=== PATIENT | male | born 1960 | race African-American/Black ===

== ENCOUNTER 2016-11-15 11:21 | Emergency (ER) ==
[2016-11-15 11:25] VITALS: BP 156/94; TEMP 97.1; BMI 20.3
[2016-11-15] MEDS ORDERED: VALIUM SYRINGE IM STA (11:50)
[2016-11-15] MEDS ORDERED: ZOFRAN 4 MG/2 ML IM STA (11:50)
[2016-11-15] MEDS ORDERED: MORPHINE 4 MG/ML SYRINGE IM STA (11:50)
--- NOTE | 2016-11-15 12:27 | CT ---
EXAM: CT lumbar spine without contrast. HISTORY: Initial presentation for back pain and right leg pain following lifting injury. COMPARISON: Radiograph 08/03/2010. TECHNIQUE: Multiple axial images of the lumbar spine were obtained without intravenous contrast. I mages were reformatted in the sagittal and coronal planes. FINDINGS: The normal curvature and alignment are maintained. Vertebral body heights are normal. N o fracture or subluxation is seen. There is mild loss of disc height at L3-4 and L4-5. Osteoarthri tic changes of the sacroiliac joints noted. Paravertebral soft tissue are without gross abnormality . Atherosclerotic calcifications present. T12-L1: Facet arthropathy with no significant neural compromise. L1-2: Facet arthropathy without neural compromise. L2-3: Broad-based disc bulge, facet arthropathy and thickening of ligamentum flavum with mild centr al canal stenosis and neural foraminal narrowing. L3-4: Disc osteophyte formation, facet arthropathy and thickening of ligamentum flavum with mild mo derate central canal stenosis and left greater than right neural foraminal narrowing. L4-5: Disc osteophyte formation, facet arthropathy and thickening of ligamentum flavum with moderat e central canal stenosis and mild neural foraminal narrowing. L5-S1: Disc osteophyte formation and facet arthropathy with mild neural foraminal narrowing.. IMPRESSION: 1. No fracture or subluxation. 2. Multilevel degenerative changes as described.
--- NOTE | 2016-11-15 12:55 | ED.PDOC ---
General ED Provider: Dr. ZOE BELTRÁN Chief Complaint: Back Pain Stated Complaint: back pain Time Seen by Physician: 11:30 Mode of Arrival: Walk-In Information Source: Patient Exam Limitations: No limitations Primary Care Provider: HARLEY TRAC[facility]Far[facility] Nursing and Triage Documentation Reviewed and Agree: Yes Musculoskeletal Complaint Exam - Back Pain Complaint/Exam Mechanism of Injury: Reports: No known trauma Onset/Duration: 1 day Symptoms Are: Still present Timing: Constant Episodes Lasting: Hours Initial Severity: Moderate Current Severity: Moderate Character: Reports: Throbbing, Spasmodic Aggravating: Reports: Movements, Lifting Alleviating: Reports: Rest, Position Associated Signs and Symptoms: Denies: Swelling, Redness, Bruising, Fever, Weakness, Numbness, Tingling, Abdominal pain, Flank pain, Bladder incontinence, Bowel incontinence, Weight loss, Pain with weight bearing Related History: Reports: Similar episode TAD Risk Factors: Reports: None AAA Risk Factors: Reports: None Cauda Equina Risk Factors: Reports: None Epidural Abcess Risk Factors: Reports: None Related Surgical History: Reports: None Focal Tenderness: No Paraspinal Muscle Tenderness: No Paraspinal Muscle Spasm: No Scoliosis: No Lordosis: No Kyphosis: No SLR Test: Right Negative, Left Negative Hip Motion Testing Pain: Right Negative, Left Negative Focal Weakness: Present: None Focal Sensory Loss: Present: None Gait: Present: Normal Differential Diagnoses: Arthritis, Fracture, Renal Colic, Strain, Sprain Review of Systems - Review Of Systems Constitutional: Reports: No symptoms Eyes: Reports: No symptoms Ears, Nose, Mouth, Throat: Reports: No symptoms Respiratory: Reports: No symptoms Cardiac: Reports: No symptoms GI: Reports: No symptoms : Reports: No symptoms Musculoskeletal: Reports: Back pain Skin: Reports: No symptoms Neurological: Reports: No symptoms Endocrine: Reports: No symptoms Hematologic/Lymphatic: Reports: No symptoms All Other Systems: Reviewed and Negative Past Medical History - Past Medical History Previously Healthy: Yes Endocrine: Reports: None Cardiovascular: Reports: None Respiratory: Reports: None Hematological: Reports: None Gastrointestinal: Reports: None Genitourinary: Reports: None Neuro/Psych: Reports: None Musculoskeletal: Reports: Joint Pain Cancer: Reports: None - Surgical History General Surgical History: Reports: Orthopedic (right hip replacement- still painful) - Family History Family History: Reports: Unknown - Social History Smoking Status: Current every day smoker Hx Substance Use: No Alcohol Screening: None Physical Exam - Physical Exam Appearance: Well-appearing, No pain distress, Well-nourished Eyes: JOSSUE, EOMI, Conjunctiva clear ENT: Ears normal, Nose normal, Oropharynx normal Respiratory: Airway patent, Breath sounds clear, Breath sounds equal, Respirations nonlabored Cardiovascular: RRR, Pulses normal, No rub, No murmur GI/: Soft, Nontender, No masses, Bowel sounds normal, No Organomegaly Musculoskeletal: Normal strength, ROM intact, No edema, No calf tenderness Skin: Warm, Dry, Normal color Neurological: Sensation intact, Motor intact, Reflexes intact, Cranial nerves intact, Alert, Oriented Psychiatric: Affect appropriate, Mood appropriate Interpretation - Radiology Interpretation Radiology Interpretation By: Radiologist Radiology Results: No acute changes Critical Care Note - Critical Care Note Total Time (mins): 0 Course - Course Orders, Labs, Meds: Orders Category Date Time Status CT LUMBAR SPINE W/O CONTRAST Stat RADS 11/15/16 11:51 Ordered Vital Signs: Temp Pulse Resp BP Pulse Ox 11/15/16 11:23 97.1 F L 70 16 156/94 H 97 Departure - Departure Time of Disposition: 12:54 Disposition: HOME SELF-CARE Discharge Problem: Low back pain Qualifiers: Chronicity: unspecified Back pain laterality: unspecified Instructions: Low Back Strain (ED), Acute Low Back Pain (ED) Condition: Good Pt referred to PMD for follow-up: No Additional Instructions: Please call your Family Physician as soon as possible to schedule a follow-up appointment. Prescriptions: Hydrocodone/Acetaminophen [[place] 5-325 Tablet] 1 each PO Q6HR PRN #14 tablet PRN Reason: PAIN Allergies/Adverse Reactions: Allergies No Known Allergies Allergy (Unverified 11/15/16 11:26) Home Medications: Ambulatory Orders Hydrocodone/Acetaminophen [[place] 5-325 Tablet] 1 each PO Q6HR PRN #14 tablet 10/03
== END 2016-11-15 13:12 | disposition home or self-care (01) ==
LOC: ED 11:21
DX: M54.5 Low back pain (principal); F17.210 Nicotine dependence, cigarettes, uncomplicated
CPT/HCPCS: 99282

== ENCOUNTER 2016-11-22 07:54 | Outpatient (CLI) ==
--- NOTE | 2016-11-22 22:09 | MRI ---
EXAM: Lumbar spine MRI without contrast. HISTORY: Back pain and pain down right leg. COMPARISON: Lumbar spine CT scan 11/15/2016 and lumbar spine radiographs 08/03/2010. TECHNIQUE: Multiplanar, multisequence MR images were acquired of the lumbar spine without contrast. FINDINGS: Five lumbar-type vertebra are present. The lumbar vertebra are normal in height. Intrins ic bone marrow signal is mildly heterogeneous with small areas of increased bright T1 and T2 signal fatty infiltration. There is 2 mm retrolisthesis of L2 on L3 and 1.5 mm retrolisthesis of L3 on L4. Ventral and lateral osteophytes are present in the lumbar spine and there is mild to moderate disc space narrowing and central disc desiccation at L3-4 and L4-5. There is mild reactive bright STIR signal edema along the posterior endplates at L3-4 and L4-5 and minor irregular concavity of the ant erior superior L5 endplate. Posterior disc space narrowing is present at L5-S1. There is mild endpl ate irregularity in the lower thoracic spine with prominent chronic Schmorl's nodes along the inferi or endplates of T10 and T11. Conus medullaris ends at L1-2 and has normal signal intensity. Canal diameter is developmentally narrow due to congenitally short pedicles. There is osteoarthritis of t he posterior spinous processes at L3-4, L4-5 and L5-S1. The solid organs are poorly visualized due to respiratory motion. There is no hydronephrosis. T12-L1: The intervertebral disc is normal. L1-2: There is a minor disc bulge with marginal osteophytes and minor bilateral hypertrophic facet arthropathy and mild ligamentum flavum hypertrophy. This causes mild bilateral foraminal stenosis. There is no central canal stenosis. L2-3: There is a mild disc bulge and mild bilateral hypertrophic facet arthropathy and ligamentum f lavum hypertrophy, greater on the left. There is moderate right and mild to moderate left neural fo raminal stenosis. AP diameter of the thecal sac is 9 mm. L3-4: There is a diffuse disc bulge with a central annular fissure that effaces the ventral thecal sac. Mild bilateral hypertrophic facet arthropathy and ligamentum flavum hypertrophy is present and there is a tiny left facet effusion. There is mild spinal stenosis and moderate bilateral foramina l stenosis with encroachment on both L3 nerves. AP diameter of the thecal sac is 9 mm. L4-5: There is a mild diffuse disc bulge with marginal osteophytes and a small broad-based central disc extrusion and annular fissure that extends from the right lateral recess to the left that sligh tly above the disc level. Mild bilateral hypertrophic facet arthropathy and ligamentum flavum hyper trophy is present. There are small bilateral facet effusions. This causes mild spinal stenosis and moderate bilateral foraminal stenosis. AP diameter of the thecal sac is 8.6 mm. L5-S1: There is a minor disc bulge with a small broad-based central disc protrusion and annular fis sure that minimally effaces the ventral thecal sac. Minor bilateral hypertrophic facet arthropathy and ligamentum flavum hypertrophy is present. There is mild right and moderate left foraminal steno sis. IMPRESSION: 1. Mild to moderate lumbar degenerative spondylosis which causes mild spinal stenosis at L2-3, L3-4 and L4-5. 2. Small broad-based central disc protrusions and annular fissures L4-5 and L5-S1. 3. Multilevel neural foraminal stenosis.
== END 2016-11-22 07:55 | disposition home or self-care (01) ==
LOC: RAD 07:54
PROVIDERS: ATTEND Nurse Practitioner Family
DX: M54.9 Dorsalgia, unspecified (principal); M54.10 Radiculopathy, site unspecified; G89.29 Other chronic pain

== ENCOUNTER 2017-05-06 10:06 | Emergency (ER) ==
[2017-05-06 10:10] VITALS: BP 147/92; TEMP 97.5; BMI 19.2
--- NOTE | 2017-05-06 10:23 | ED.PDOC ---
General ED Provider: Dr. CORTES SAVAGE-ER Chief Complaint: Back Pain Stated Complaint: i go to pain management for my back--i ran out of meds last week--i hurt my back this am Time Seen by Physician: 10:10 Mode of Arrival: Walk-In Information Source: Patient, Family Exam Limitations: No limitations [facility] Triage Documentation Reviewed and Agree: Yes Musculoskeletal Complaint Exam - Back Pain Complaint/Exam Mechanism of Injury: Reports: No known trauma Onset/Duration: several days Symptoms Are: Still present Timing: Constant Episodes Lasting: Hours Initial Severity: Mild Current Severity: Moderate Location: Reports: Discrete Character: Reports: Dull, Aching, Spasmodic, Stiffness Aggravating: Reports: Movements, Lifting, Bending, Walking Alleviating: Reports: None Associated Signs and Symptoms: Denies: Swelling, Redness, Bruising, Fever, Weakness, Numbness, Tingling, Abdominal pain, Flank pain, Bladder incontinence, Bowel incontinence, Weight loss, Pain with weight bearing Related History: Reports: Previous back injury Cauda Equina Risk Factors: Reports: None Epidural Abcess Risk Factors: Reports: None Focal Tenderness: Yes Paraspinal Muscle Tenderness: Yes Paraspinal Muscle Spasm: No Scoliosis: No Lordosis: No Kyphosis: No SLR Test: Right Negative, Left Negative Hip Motion Testing Pain: Right Negative, Left Negative Focal Weakness: Present: None Focal Sensory Loss: Present: None Gait: Present: Abnormal Differential Diagnoses: Herniated Disk, Strain, Sprain, Other Review of Systems - Review Of Systems Constitutional: Reports: No symptoms Eyes: Reports: No symptoms Ears, Nose, Mouth, Throat: Reports: No symptoms Respiratory: Reports: No symptoms Cardiac: Reports: No symptoms GI: Reports: No symptoms : Reports: No symptoms Musculoskeletal: Reports: Back pain, Muscle pain Skin: Reports: No symptoms Neurological: Reports: No symptoms Endocrine: Reports: No symptoms Hematologic/Lymphatic: Reports: No symptoms All Other Systems: Reviewed and Negative Past Medical History - Past Medical History Previously Healthy: Yes Endocrine: Reports: None Cardiovascular: Reports: None Respiratory: Reports: None Hematological: Reports: None Gastrointestinal: Reports: None Genitourinary: Reports: None Neuro/Psych: Reports: None Musculoskeletal: Reports: Joint Pain Cancer: Reports: None - Surgical History General Surgical History: Reports: Orthopedic (right hip replacement- still painful) - Family History Family History: Reports: Unknown - Social History Smoking Status: Current every day smoker Hx Substance Use: No Alcohol Screening: None Lives: With family - Immunizations Tetanus Shot up to Date: No Physical Exam - Physical Exam Appearance: Well-appearing, No pain distress, Well-nourished Pain Distress: Moderate Eyes: JOSSUE, EOMI, Conjunctiva clear ENT: Ears normal, Nose normal, Oropharynx normal Neck: Supple Respiratory: Airway patent, Breath sounds clear, Breath sounds equal, Respirations nonlabored Cardiovascular: RRR, Pulses normal, No rub, No murmur GI/: Soft, Nontender, No masses, Bowel sounds normal, No Organomegaly Musculoskeletal: Limited ROM Skin: Warm Neurological: Sensation intact Psychiatric: Affect appropriate, Mood appropriate, Anxious Interpretation - Radiology Interpretation Radiology Interpretation By: Radiologist Radiology Results: Negative Exam Interpreted: CT Scan Critical Care Note - Critical Care Note Total Time (mins): 0 Course - Course Orders, Labs, Meds: Orders Category Date Time Status CT LUMBAR SPINE W/O CONTRAST Stat RADS 05/06/17 10:18 Completed Mr gore drove himself here today and cannot receive any injections that would alter mental status--although he goes to pain management--he insists he did not sign a contract wtih them not receive narcotics outside-- Vital Signs: Temp Pulse Resp BP Pulse Ox 05/06/17 10:06 97.5 F L 76 22 147/92 H 98 Departure - Departure Time of Disposition: 10:49 Disposition: HOME SELF-CARE Discharge Problem: Chronic low back pain Qualifiers: Back pain laterality: unspecified Sciatica presence: without sciatica Qualifier Code: (M54.5) Low back pain Instructions: Chronic Back Pain (ED) Condition: Good Pt referred to PMD for follow-up: Yes Additional Instructions: norco 7.5mg q 4hrs prn pain #8--f/u with pain management tomorrow Allergies/Adverse Reactions: Allergies No Known Allergies Allergy (Unverified 05/06/17 10:11) Home Medications: Ambulatory Orders Hydrocodone/Acetaminophen [[place] 5-325 Tablet] 1 each PO Q6HR PRN #14 tablet 10/03 Disposition Discussed With: Patient, Family
--- NOTE | 2017-05-06 10:47 | CT ---
EXAM: CT lumbar spine without contrast HISTORY: Low back pain TECHNIQUE: Multi-slice transaxial helical with coronal and sagittal reformatted views. COMPARISON: CT lumbar spine 11/15/2016 FINDINGS: The visualized vertebral body heights appear preserved. There is minimal multilevel disc space narr owing and endplate osteophytosis. No evidence of listhesis is seen. Schmorl's nodes are present wi thin the T11 and T10 vertebral bodies. Mild lower lumbar facet osteoarthritis is present. No evide nce of displaced lumbar fracture is seen. The Visualized lung bases appear clear. Calcified plaques are present within the abdominal aorta and it s major branch vessels. Segmental analysis: T12-L1: No significant central canal or neural foraminal stenosis L1-L2: Is no significant central canal or neural foraminal stenosis. Bilateral congenitally shortene d pedicles present. There is mild bilateral neural foraminal narrowing. L2-L3: There is mild narrowing of the central canal secondary to a circumferential disc bulge. Conge nitally shortened pedicles is present. There is mild to moderate bilateral neural foraminal narrowi ng. L3-L4: Mild narrowing of the central canal is present secondary to circumferential disc bulge. Bila teral congenitally shortened pedicles is present. There is moderate left and mild to moderate right neural foraminal narrowing. L4-L5: There is moderate narrowing of central canal secondary to posterior disc osteophyte complex, thickening of the ligamentum flavum, and to a nearly shortened pedicles. There is moderate bilatera l neural foraminal narrowing. L5-S1: No significant central canal narrowing is seen. There is moderate bilateral neural foraminal narrowing. Congenital shortened pedicles is again seen. IMPRESSION: 1. No evidence of fracture or listhesis. 2. Congenitally shortened pedicles. 3. Multilevel relatively mild lumbar disc disease as detailed above. 4. Moderate narrowing of the central canal at L4-L5 as detailed above. 5. Multilevel up to moderate neural foraminal narrowing as detailed above.
== END 2017-05-06 10:58 | disposition home or self-care (01) ==
LOC: ED 10:06
DX: M54.5 Low back pain (principal); G89.29 Other chronic pain; F17.210 Nicotine dependence, cigarettes, uncomplicated
CPT/HCPCS: 99283

== ENCOUNTER 2017-07-18 15:02 | Outpatient (CLI) ==
--- NOTE | 2017-07-18 15:44 | DI ---
EXAM: Two views of the thorax lumbar spine HISTORY: Pain in the thoracic spine. COMPARISON: Lumbar spine x-ray 08/03/2010 FINDINGS: There is no acute compression fracture or subluxation. There is mild disc space narrowing and osteophyte formation of the thoracic spine. Soft tissues are unremarkable. IMPRESSION: Mild degenerative disease of the thoracic spine with no acute compression fracture or shafer bluxation.
== END 2017-07-18 15:03 | disposition home or self-care (01) ==
LOC: RAD 15:02
PROVIDERS: ATTEND Nurse Practitioner Family
DX: M54.6 Pain in thoracic spine (principal)

== ENCOUNTER 2017-09-03 14:47 | Emergency (ER) ==
[2017-09-03 14:55] VITALS: BP 130/83; TEMP 99; BMI 20.7
--- NOTE | 2017-09-03 15:27 | ED.PDOC ---
General ED Provider: Dr. ZOE BELTRÁN Chief Complaint: Eye Problem Stated Complaint: right eye lid edema Time Seen by Physician: 15:00 (x 7 days no trauma) Mode of Arrival: Walk-In Information Source: Patient Exam Limitations: No limitations [facility] Documentation Reviewed and Agree: Yes (see photo) EENT Complaint Exam - Eye Complaint/Exam Onset/Duration: 7 days Symptoms Are: Still present Timing: Constant Initial Severity: Moderate Current Severity: Moderate Location: Right Character: Reports: Dull Aggravating: Reports: None Alleviating: Reports: None Associated Signs and Symptoms: Denies: Photophobia, Clear drainage, Purulent drainage, Vision impairment, Fever, Swelling Eye Surgical History: Reports: None Penetrating Injury Risk Factors: None Globe Rupture Risk Factors: None Acute Glaucoma Risk Factors: None Optic Artery Occlusion Risk Factors: None Visual Field: Normal Extraocular Movement: Normal Orbit Findings: Normal Globe Findings: Intact Lid Findings: Normal Corneal Findings: Clear Differential Diagnoses: Other (chalizion) Review of Systems - Review Of Systems Constitutional: Reports: No symptoms Eyes: Reports: Other (edema upper lid cornea intact eye perrla EOMI) Ears, Nose, Mouth, Throat: Reports: No symptoms Respiratory: Reports: No symptoms Cardiac: Reports: No symptoms GI: Reports: No symptoms : Reports: No symptoms Musculoskeletal: Reports: No symptoms Skin: Reports: No symptoms Neurological: Reports: No symptoms Endocrine: Reports: No symptoms Hematologic/Lymphatic: Reports: No symptoms All Other Systems: Reviewed and Negative Past Medical History - Past Medical History Previously Healthy: Yes Endocrine: Reports: None Cardiovascular: Reports: None Respiratory: Reports: None Hematological: Reports: None Gastrointestinal: Reports: None Genitourinary: Reports: None Neuro/Psych: Reports: None Musculoskeletal: Reports: Joint Pain Cancer: Reports: None - Surgical History General Surgical History: Reports: Orthopedic (right hip replacement- still painful) - Family History Family History: Reports: Unknown - Social History Smoking Status: Current every day smoker, Heavy tobacco smoker Hx Substance Use: No Alcohol Screening: None Physical Exam - Physical Exam Appearance: Well-appearing, No pain distress, Well-nourished Eyes: JOSSUE, EOMI, Conjunctiva clear (RIGHT UPPER LID EYEMA ) ENT: Ears normal, Nose normal, Oropharynx normal Respiratory: Airway patent, Breath sounds clear, Breath sounds equal, Respirations nonlabored Cardiovascular: RRR, Pulses normal, No rub, No murmur GI/: Soft, Nontender, No masses, Bowel sounds normal, No Organomegaly Musculoskeletal: Normal strength, ROM intact, No edema, No calf tenderness Skin: Warm, Dry, Normal color Neurological: Sensation intact, Motor intact, Reflexes intact, Cranial nerves intact, Alert, Oriented Psychiatric: Affect appropriate, Mood appropriate Physician Notification - Case Discussed Physician Notified: BRUSH OD Time of Notification: 15:30 (WILL SEE PT NOW) Critical Care Note - Critical Care Note Total Time (mins): 0 Course - Course Vital Signs: Temp Pulse Resp BP Pulse Ox 09/03/17 14:50 99 F 63 20 130/83 98 Departure - Departure Time of Disposition: 15:29 Disposition: HOME SELF-CARE Discharge Problem: Acute chalazion of right eye Instructions: Chalazion (ED), Eyelid Chalazion Removal (GEN) Condition: Good Pt referred to PMD for follow-up: Yes Additional Instructions: Please call your Family Physician as soon as possible to schedule a follow-up appointment. MUST BRUSH OD NOW Allergies/Adverse Reactions: Allergies No Known Allergies Allergy (Verified 09/03/17 14:56) Home Medications: Ambulatory Orders Gabapentin 300 mg PO BID 08/31/17
== END 2017-09-03 15:35 | disposition home or self-care (01) ==
LOC: ED 14:47
DX: H00.11 Chalazion right upper eyelid (principal); F17.210 Nicotine dependence, cigarettes, uncomplicated
CPT/HCPCS: 99282

== ENCOUNTER 2017-11-22 11:49 | Outpatient (CLI) | END 2017-11-22 11:50 | disposition home or self-care (01) | LOC: RHC-LAB 11:49 | PROVIDERS: ATTEND Nurse Practitioner Family | DX: M54.5 Low back pain (principal); M25.551 Pain in right hip; Z12.5 Encounter for screening for malignant neoplasm of prostate; Z72.0 Tobacco use | CPT/HCPCS: 36415; 80053; 80061; 84443; 85025 ==

== ENCOUNTER 2017-11-28 08:04 | Outpatient (CLI) ==
--- NOTE | 2017-11-28 11:39 | CT ---
Exam: CT of the right hip without contrast History: Right hip pain status post replacement Technique: [address] of the right hip with multiplanar reformations FINDINGS: Right hip arthroplasty in place with associated artifact which is technically inhibiting. No paralleling lucencies are seen. No ritika-hardware fracture is seen. The single retention screw is intact. Visualized right richard pelvis is intact. No peripheral soft tissue abnormality is seen. No visceral abnormality is seen and the visualized right pelvis. Atherosclerotic vascular calcification s are present. Impression: 1. Right hip arthroplasty. No evidence of loosening or ritika-hardware fracture.
== END 2017-11-28 08:05 | disposition home or self-care (01) ==
LOC: RAD 08:04
PROVIDERS: ATTEND Nurse Practitioner Family
DX: M25.551 Pain in right hip (principal); Z96.641 Presence of right artificial hip joint